=== PATIENT | male | born 2000 | race African-American/Black ===

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

== ENCOUNTER 2021-02-08 12:43 | Outpatient (CLI) | payer OTHER | END 2021-02-08 12:44 | disposition home or self-care (01) | LOC: SCSMRI 12:43 | PROVIDERS: ATTEND Orthopaedic Surgery | DX: S76.112A Strain of left quadriceps muscle, fascia and tendon, initial encounter (principal); S82.002A Unspecified fracture of left patella, initial encounter for closed fracture; R60.0 Localized edema ==

== ENCOUNTER 2023-02-15 14:25 | Outpatient (CLI) | payer BC | END 2023-02-15 14:26 | disposition home or self-care (01) | LOC: ULT 14:25 → BICULT 14:26 | PROVIDERS: ATTEND Family Medicine | DX: R22.1 Localized swelling, mass and lump, neck (principal) | CPT/HCPCS: 76999 ==